=== PATIENT | male | born 1955 | race Caucasian/White ===

== ENCOUNTER 2021-07-11 10:22 | Emergency (ER) | payer OTHER ==
[~2021-07-11 10:22] MED LIST: AMOX TR-K CLV1 EAC4 PO; ASPIRIN81 MG PO; BACLOFEN 10MG T10 MG PO; CERTAGEN1 EACH PO; FERROUS SULFAT325 M2 PO; GLUCOSAMINE CH1 EAC2 PO; HCTZ25 MG PO; HYDROCODON-ACE1 EAC2 PO; LAXATIVE OF CHOICE; MAGNESIUM/POTASSIUM PO; MIRALAX17 GM PO; NEURONTIN300 MG PO; NEXIUM40 MG PO; PERCOCET 5-3251 EACH PO; PRAVACHOL40 MG PO; SYNTHROID125 MCG PO; TYLENOL325 M1 PO; VITAMIN D35000 UNI1 PO; XANAX0.25 MG PO; XANAX0.5 MG PO; XARELTO10 MG PO; ZESTRIL10 MG PO
[2021-07-11 12:16] LABS: BASOPHIL 0.6 % (0-2); EOSINOPHIL 3.1 % (0-7); HCT 34.8 % (42.0-52.0); HGB 11.6 g/dl (13.2-18.0); LYMPHOCYTE 19.3 % (15-48); MCH 30.4 pg (25.0-31.0); MCHC 33.3 g/dL (32.0-36.0); MCV 91.3 fL (78.0-100.0); MONOCYTE 6.7 % (0-12); MPV 11.5 fL (6.0-9.5); NEUTROPHIL 69.8 % (41-80); NRBC 0; PLT 150 K/uL (150-400); RBC 3.81 M/uL (4.70-6.00); RDW 12.2 % (11.5-14.0); WBC 8.8 K/uL (4.0-10.5)
[2021-07-11 12:38] LABS: BUN/CREAT RATIO (CALC) 23.3 RATIO; CREATININE 1.29 mg/dL (0.67-1.17); POTASSIUM 3.8 mmol/L (3.5-5.1)
[2021-07-11] MEDS ORDERED: PREDNISONE 20MG20 MG PO (12:59)
== END 2021-07-11 14:03 | disposition home or self-care (01) ==
LOC: FER 10:22
PROVIDERS: Emergency Medicine
DX: M10.9 Gout, unspecified (principal); I10 Essential (primary) hypertension; E03.9 Hypothyroidism, unspecified; Z79.82 Long term (current) use of aspirin; Z79.890 Hormone replacement therapy; Z79.899 Other long term (current) drug therapy
CPT/HCPCS: 36415; 73610; 80048; 84550; 85025; J7512

== ENCOUNTER 2021-08-16 09:26 | Emergency (ER) | payer OTHER ==
[~2021-08-16 09:26] MED LIST changes: +PREDNISONE 20MG20 MG PO
[2021-08-16] MEDS ORDERED: ATARAX25 MG PO (11:02)
[2021-08-16] MEDS ORDERED: PREDNISONE 20MG20 MG PO (11:02)
== END 2021-08-16 11:30 | disposition home or self-care (01) ==
LOC: FER 09:26
DX: L27.0 Generalized skin eruption due to drugs and medicaments taken internally (principal); T50.4X5A Adverse effect of drugs affecting uric acid metabolism, initial encounter; I10 Essential (primary) hypertension; F17.290 Nicotine dependence, other tobacco product, uncomplicated; Z88.6 Allergy status to analgesic agent; Z88.8 Allergy status to other drugs, medicaments and biological substances; Z79.899 Other long term (current) drug therapy
CPT/HCPCS: J1200; J2930